=== PATIENT | male | born 1995 | race Caucasian/White ===

== ENCOUNTER 2018-06-03 17:23 | Emergency (ER) | payer BC, OTHER ==
[~2018-06-03 17:23] MED LIST: CEP500 PO; DIP25 PO; IBUPROFEN; LOR5/325 PO; NASONEX; PRE20 PO; SUMA25TA26 PO
--- NOTE | 2018-06-03 17:34 | ER Report ---
History and Physical Time Seen By MD: 17:34 Hx. of Stated Complaint: CHEST PAIN THAT STARTED ABOUT ONE HOUR AGO WITH DIFF BREATHING CAN'T CATCH MY BREATHE HPI/ROS CHIEF COMPLAINT: chest pain HISTORY OF PRESENT ILLNESS: 23 year old male presents with chest pressure and shortness of breath. Reports that he had some chest pain yesterday, but the sensation has significantly increased today starting about 1630. Reports pain is at center of chest, pain is dull, and feels more like a pressure sensation versus pain. Patient reports a squeezing sensation. Reports associated symptoms of shortness of breath, dizziness/lightheadedness, blurry vision, and tingling sensation on the bottom of bilateral feet. Reports he feels like he can't get enough air into his lungs. States that the chest pressure is worse with deep inspiration. Denies cough, fever, chills. REVIEW OF SYSTEMS: Constitutional: No fever, no chills. Eyes: No discharge. ENT: No sore throat. Cardiovascular: Reports chest pressure in the center of his chest, no palpitations. Respiratory: No cough. Reports shortness of breath. Gastrointestinal: No abdominal pain, no vomiting. Genitourinary: No hematuria. No urinary changes. Musculoskeletal: No back pain. Skin: No rashes. Neurological: No headache. Reports dizziness/lightheadedness and blurry vision. Reports it is hard to focus. Allergies: Coded Allergies: No Known Drug Allergies (Verified , 06/03/18) Home Meds Active Scripts Hydroxyzine Hcl (HYDROXYZINE HCL) 25 Mg Tablet, 25 MG PO Q6H PRN for ANXIETY, #30 TAB Prov:ALFONZO AMAYA 06/03/18 Past Medical/Surgical History No significant past medical history. Reports hx of septum repair. Reviewed Nurses Notes: Yes Hx Smoking: No Exposure to Second Hand Smoke?: No Constitutional Vital Sign - Last 24 Hours 06/03/18 06/03/18 06/03/18 06/03/18 17:23 17:29 17:31 17:40 Temp 97.3 Pulse 88 74 Resp 18 B/P (MAP) 122/68 (86) 122/68 109/75 (86) Pulse Ox 100 O2 Delivery Room Air 06/03/18 06/03/18 06/03/18 06/03/18 17:53 18:00 18:20 18:23 Pulse 80 71 Resp 11 12 B/P (MAP) 109/70 (83) 113/72 (86) Pulse Ox 98 97 06/03/18 06/03/18 06/03/18 06/03/18 18:28 18:33 18:38 18:40 Pulse 78 78 69 Resp 8 19 13 B/P (MAP) 103/89 (94) Pulse Ox 97 98 97 06/03/18 06/03/18 06/03/18 06/03/18 18:43 18:48 18:53 18:58 Pulse 74 75 74 70 Resp 24 22 15 20 Pulse Ox 98 98 96 98 06/03/18 06/03/18 19:00 19:03 Pulse ??? Resp 17 B/P (MAP) 107/77 (87) Pulse Ox 99 Physical Exam General Appearance: The patient is alert, has no immediate need for airway protection and no signs of toxicity. Eyes: Pupils equal and round no pallor or injection. ENT, Mouth: Mucous membranes are moist. Respiratory: There are no retractions, lungs are clear to auscultation. Cardiovascular: Regular rate and rhythm. Cap refill prolonged in bilateral toes; toes cold to the touch. Gastrointestinal: Abdomen is soft and non tender, no masses, bowel sounds normal. Neurological: Alert and oriented to person, place, and time. Skin: Warm and dry, no rashes. DIFFERENTIAL DIAGNOSIS: After history and physical exam differential diagnosis was considered for [place], PE, anxiety, pneumonia. Medical Decision Making Data Points Result Diagram: 06/03/18 1728 06/03/18 1728 Laboratory Hematology Test 06/03/18 17:28 Red Blood Count 5.66 M/uL (4.00-5.60) Mean Corpuscular Volume 90.6 fL (80.0-96.0) Mean Corpuscular Hemoglobin 30.9 pg (26.0-33.0) Mean Corpuscular Hemoglobin Concent 34.1 g/dL (32.0-36.0) Red Cell Distribution Width 13.5 % (11.5-14.5) Mean Platelet Volume 9.6 fL (7.2-11.1) Neutrophils (%) (Auto) 74.6 % (39.4-72.5) Lymphocytes (%) (Auto) 16.8 % (17.6-49.6) Monocytes (%) (Auto) 6.7 % (4.1-12.4) Eosinophils (%) (Auto) 0.5 % (0.4-6.7) Basophils (%) (Auto) 1.4 % (0.3-1.4) Nucleated RBC Relative Count (auto) 0.1 /100WBC Neutrophils # (Auto) 8.0 K/uL (2.0-7.4) Lymphocytes # (Auto) 1.8 K/uL (1.3-3.6) Monocytes # (Auto) 0.7 K/uL (0.3-1.0) Eosinophils # (Auto) 0.1 K/uL (0.0-0.5) Basophils # (Auto) 0.1 K/uL (0.0-0.1) Nucleated RBC Absolute Count (auto) 0.01 K/uL Erythrocyte Sedimentation Rate 2 mm/HOUR (0-15) D-Dimer Quantitative (PE/DVT) < 0.27 ug/ml (0-0.50) Sodium Level 141 mmol/L (137-145) Potassium Level 3.6 mmol/L (3.5-5.0) Chloride Level 104 mmol/L (98-107) Carbon Dioxide Level 21 mmol/L (22-30) Blood Urea Nitrogen 13 mg/dl (9-21) Creatinine 1.00 mg/dl (0.66-1.25) Glomerular Filtration Rate Calc > 60.0 Random Glucose 86 mg/dl (75-110) Calcium Level 9.4 mg/dl (8.4-10.2) Total Bilirubin 0.9 mg/dl (0.2-1.3) Aspartate Amino Transf (AST/SGOT) 45 U/L (0-35) Alanine Aminotransferase (ALT/SGPT) 31 U/L (0-56) Alkaline Phosphatase 63 U/L (0-126) Troponin I < 0.012 ng/ml C-Reactive Protein < 0.5 mg/dl (<1.0) Total Protein 8.4 g/dl (6.3-8.2) Albumin 5.0 g/dl (3.5-5.0) Chemistry Test 06/03/18 17:28 White Blood Count 10.8 k/uL (4.5-11.0) Red Blood Count 5.66 M/uL (4.00-5.60) Hemoglobin 17.5 g/dL (14.0-18.0) Hematocrit 51.3 % (42.0-52.0) Mean Corpuscular Volume 90.6 fL (80.0-96.0) Mean Corpuscular Hemoglobin 30.9 pg (26.0-33.0) Mean Corpuscular Hemoglobin Concent 34.1 g/dL (32.0-36.0) Red Cell Distribution Width 13.5 % (11.5-14.5) Platelet Count 229 K/uL (150-450) Mean Platelet Volume 9.6 fL (7.2-11.1) Neutrophils (%) (Auto) 74.6 % (39.4-72.5) Lymphocytes (%) (Auto) 16.8 % (17.6-49.6) Monocytes (%) (Auto) 6.7 % (4.1-12.4) Eosinophils (%) (Auto) 0.5 % (0.4-6.7) Basophils (%) (Auto) 1.4 % (0.3-1.4) Nucleated RBC Relative Count (auto) 0.1 /100WBC Neutrophils # (Auto) 8.0 K/uL (2.0-7.4) Lymphocytes # (Auto) 1.8 K/uL (1.3-3.6) Monocytes # (Auto) 0.7 K/uL (0.3-1.0) Eosinophils # (Auto) 0.1 K/uL (0.0-0.5) Basophils # (Auto) 0.1 K/uL (0.0-0.1) Nucleated RBC Absolute Count (auto) 0.01 K/uL Erythrocyte Sedimentation Rate 2 mm/HOUR (0-15) D-Dimer Quantitative (PE/DVT) < 0.27 ug/ml (0-0.50) Glomerular Filtration Rate Calc > 60.0 Calcium Level 9.4 mg/dl (8.4-10.2) Total Bilirubin 0.9 mg/dl (0.2-1.3) Aspartate Amino Transf (AST/SGOT) 45 U/L (0-35) Alanine Aminotransferase (ALT/SGPT) 31 U/L (0-56) Alkaline Phosphatase 63 U/L (0-126) Troponin I < 0.012 ng/ml C-Reactive Protein < 0.5 mg/dl (<1.0) Total Protein 8.4 g/dl (6.3-8.2) Albumin 5.0 g/dl (3.5-5.0) Coagulation Test 06/03/18 17:28 D-Dimer Quantitative (PE/DVT) < 0.27 ug/ml EKG/Imaging EKG Interpretation 12 lead EKG: Rhythm: normal sinus rhythm with ventricular rate of 67 bpm [place]: normal QRS: normal ST segments: normal Monitor Interpretation: Normal Sinus Rhythm Imaging Chest with lateral, 2 views. HISTORY: Chest pain. COMPARISON: None. The heart and mediastinum are unremarkable. Pulmonary vessels are unremarkable. The lungs are voluminous. The pleural surfaces are unremarkable. No pneumothorax. Minimal curvature is present in the thoracic spine. IMPRESSION: Voluminous lungs. Otherwise no evidence of acute cardiopulmonary disease. Report Dictated By: Reymundo Thomas MD at 06/03/2018 6:34 PM Report E-Signed By: Reymundo Thomas MD at 06/03/2018 6:35 PM ED Course/Re-evaluation ED Course Patient was admitted to the exam room, history and physical were obtained. Differential diagnoses were considered. On examination lungs are clear, heart regular, abdomen soft nontender. Patient had no tenderness to palpation of the chest or abdomen. Patient was noted to be tachypneic and taking deep breaths. A CBC, CMP, troponin, EKG, chest x-ray were done. Lab results were unremarkable, troponin was undetectable, d-dimer was undetectable, chest x-ray showed voluminous lungs. We discussed the findings with the patient. This appears to be more related to anxiety as noted with the tachypnea and deep breaths. Patient maintained a oxygen saturation 97-99% throughout the stay. We will go ahead and discharge him home at this time. Patient was given a prescription for hydroxyzine to help calm down any anxiety. Patient is to follow-up with primary care in the next week. He was given a list of primary care providers here in [place]. Patient verbalized understanding and agreement with plan. Decision to Disposition Date: Jun 03, 2018 Decision to Disposition Time: 18:54 Depart Departure Latest Vital Signs Vital Signs Date Time Temp Pulse Resp B/P (MAP) Pulse Ox O2 Delivery O2 Flow Rate FiO2 06/03/18 19:03 ??? 17 99 06/03/18 19:00 107/77 (87) 06/03/18 17:31 97.3 Room Air Impression: Primary Impression: Chest pain Condition: Stable Disposition: HOME OR SELF-CARE New Scripts Hydroxyzine Hcl (HYDROXYZINE HCL) 25 Mg Tablet 25 MG PO Q6H PRN for ANXIETY, #30 TAB Prov: ALFONZO AMAYA 06/03/18 Patient Instructions: Anxiety (ED) Additional Instructions: You may take hydroyzine every 6 hours as needed for anxiety symtpoms. Drink plenty of fluids and get plenty of rest. Please follow-up with a primary care provider within the next week. Please return to the ED if your chest pain returns or worsens, you have any difficulty breathing, you develop a fever, or for any other concerns. Problem Qualifiers Primary Impression: Chest pain Chest pain type: other chest pain Qualified Codes: R07.89 - Other chest pain ALFONZO AMAYA Jun 03, 2018 17:34
[2018-06-03] MEDS ORDERED: ASPIRIN 81 MG CHEW PO ONE (17:55)
--- NOTE | 2018-06-03 18:00 | EKG ---
FACILITY: [facility] PATIENT NAME: ALLIE العراقي : [id number] MR: [id number]: [id number] EXAM DATE: ORDERING PHYSICIAN: ALFONZO AMAYA TECHNOLOGIST: NELSON Enrique Reason : CP Blood Pressure : / mmHG Vent. Rate : 067 BPM Atrial Rate : 067 BPM P-R Int : 148 ms QRS Dur : 098 ms QT Int : 398 ms P-R-T Axes : 057 077 057 degrees QTc Int : 420 ms Normal sinus rhythm Normal ECG No previous ECGs available Confirmed by HEVER WEBB ([id number]) on 06/04/2018 6:36:48 AM Referred By: MONIQUE Confirmed By:HEVER WEBB
[2018-06-03 18:01] LABS: PLATELET COUNT, AUTOMATED 229 K/uL (150-450)
--- NOTE | 2018-06-03 18:39 | RADIOLOGY IMAGING REPORT ---
FACILITY: [facility] PATIENT NAME: Joe Longo : 1995 MR: [id number] V: [id number] EXAM DATE: ORDERING PHYSICIAN: ALFONZO AMAYA [place]CHN[place] [facility] [place] : 1995 Visit/Account:[id number] Date of Sevice: 06/03/2018 Chest with lateral, 2 views. HISTORY: Chest pain. COMPARISON: None. The heart and mediastinum are unremarkable. Pulmonary vessels are unremarkable. The lungs are volum inous. The pleural surfaces are unremarkable. No pneumothorax. Minimal curvature is present in the th oracic spine. IMPRESSION: Voluminous lungs. Otherwise no evidence of acute cardiopulmonary disease. Report Dictated By: Reymundo Thomas MD at 06/03/2018 6:34 PM Report E-Signed By: Reymundo Thomas MD at 06/03/2018 6:35 PM WSN:[id number]
[2018-06-03] MEDS ORDERED: hydrOXYzine 25 MG TAB PO ONE (18:55)
[2018-06-03] MEDS ORDERED: HYDR-4225 PO (18:57)
[2018-06-03 19:00] VITALS: BP 107/77
== END 2018-06-03 19:09 | disposition home or self-care (01) ==
LOC: ER 17:49
DX: R07.89 Other chest pain (principal)
CPT/HCPCS: 71046; 82040; 82247; 82310; 82374; 82435; 82565; 82947; 84075; 84132; 84155; 84295; 84450; 84460; 84484; 84520; 85025; 85379; 85651; 86140; 93005; 99284